=== PATIENT | male | born 1995 | race Two or more races ===

== ENCOUNTER 2020-11-27 23:09 | Emergency (ER) | payer OTHER ==
[~2020-11-27] VITALS: Ht 193 cm; Wt 99.8 kg
[~2020-11-27 23:09] MED LIST: ABILIFY30 MG; CARNITOR330 MG; LITHIUM CARBON450 MG; SEROQUEL400 MG; STRATTERA80 MG
[2020-11-27] MEDS ORDERED: RESTORIL15 MG (23:26)
[2020-11-27] MEDS ORDERED: SEROQUEL200 MG (23:26)
[2020-11-27] MEDS ORDERED: ZOLOFT50 MG (23:26)
[2020-11-27] MEDS ORDERED: CARNITOR330 MG (23:27)
[2020-11-28] MEDS ORDERED: PEPCID40 MG PO (06:07)
[2020-11-28] MEDS ORDERED: ZOFRAN8 MG PO (06:07)
== END 2020-11-28 06:14 | disposition home or self-care (01) ==
LOC: ER 23:09
DX: K29.70 Gastritis, unspecified, without bleeding (principal); R50.9 Fever, unspecified